=== PATIENT | female | born 1960 | race Caucasian/White ===

== ENCOUNTER 2023-04-17 08:35 | Outpatient (CLI) | payer OTHER | END 2023-04-17 08:36 | disposition home or self-care (01) | LOC: CT 08:35 | PROVIDERS: ATTEND Orthopaedic Surgery | DX: M54.50 Low back pain, unspecified (principal); M47.26 Other spondylosis with radiculopathy, lumbar region; M50.121 Cervical disc disorder at C4-C5 level with radiculopathy; M43.12 Spondylolisthesis, cervical region; M43.13 Spondylolisthesis, cervicothoracic region; Z98.1 Arthrodesis status; Z98.890 Other specified postprocedural states | CPT/HCPCS: 72131; 72141; 72148 ==